=== PATIENT | female | born 2000 | race Two or more races ===

== ENCOUNTER 2018-03-17 11:25 | Emergency (ER) | payer SELFPAY ==
[2018-03-17 11:46] VITALS: BP 109/57
--- NOTE | 2018-03-17 12:10 | ER Document Report ---
ED Medical Screen (RME) - General Chief Complaint: Vaginal Discharge Stated Complaint: PELVIC PAIN Time Seen by Provider: 03/17/18 12:07 Notes: 17 years old female presents today not having any menstrual cycle for the last 2 months, but the last 2 days having bloody discharges lower abdominal pain and also painful urination at the end of micturition. No fever chills or other constitutional symptoms. TRAVEL OUTSIDE OF THE [place] IN LAST 30 DAYS: No - Related Data Allergies/Adverse Reactions: amoxicillin Allergy (Verified 03/17/18 12:09) Physical Exam - Vital signs Vitals: Temp Pulse Resp BP Pulse Ox 98.4 F 78 16 109/57 L 99 03/17/18 11:44 03/17/18 11:44 03/17/18 11:44 03/17/18 11:44 03/17/18 11:44 Course - Vital Signs Vital signs: Temp Pulse Resp BP Pulse Ox 98.4 F 78 16 109/57 L 99 03/17/18 11:44 03/17/18 11:44 03/17/18 11:44 03/17/18 11:44 03/17/18 11:44
[2018-03-17 12:33] LABS: APPEARANCE,URINE CLOUDY; BILIRUBIN,URINE NEGATIVE (NEGATIVE); COLOR,URINE YELLOW; GLUCOSE, URINE NEGATIVE (NEGATIVE); KETONES,URINE NEGATIVE (NEGATIVE); LEUKOCYTE ESTERASE,URINE LARGE (NEGATIVE); NITRITE,URINE NEGATIVE (NEGATIVE); PROTEIN,URINE 30 mg/dL (NEGATIVE); URINE SPECIFIC GRAVITY 1.023
[2018-03-17 12:34] LABS: ABSOLUTE EOSINOPHILS # (AUTO) 0.1 10^3/uL (0.0-0.6); ABSOLUTE MONOCYTES (AUTO) 0.5 10^3/uL (0.1-1.4); ABSOLUTE NEUT (AUTO) 5.1 10^3/uL (1.7-8.2); BASOPHILS % (AUTO) 0.6 % (0-2); EOSINOPHILS % (AUTO) 0.9 % (0-6); HEMATOCRIT 36.6 % (36.0-47.0); HEMOGLOBIN 12.5 g/dL (12.0-15.5); LYMPHOCYTES % (AUTO) 25.9 % (13-45); MEAN CORPUSCULAR HGB CONC 34.2 g/dL (32.0-36.0); MEAN CORPUSCULAR VOLUME 82 fl (80-97); MONOCYTES % (AUTO) 6.2 % (3-13); PLATELET COUNT 204 10^3/uL (150-450); RED BLOOD COUNT 4.46 10^6/uL (3.72-5.28); SEGMENTED NEUTROPHILS % (AUTO) 66.4 % (42-78); TOTAL CELLS COUNTED % (AUTO) 100 %; WHITE BLOOD COUNT 7.7 10^3/uL (4.0-10.5)
[2018-03-17] MEDS ORDERED: CEFTRIAXONE INJ 250 MG VIAL IM ONE (13:07)
--- NOTE | 2018-03-17 13:07 | ER Document Report ---
ED General - General Chief Complaint: Vaginal Discharge Stated Complaint: PELVIC PAIN Time Seen by Provider: 03/17/18 12:07 TRAVEL OUTSIDE OF THE [place] IN LAST 30 DAYS: No - HPI Notes: Patient is a 17-year-old female that presents to the emergency department for chief complaint of dysuria and vaginal discharge. Patient states that she has had dysuria for the last 5 days and pelvic pressure at the end of urination. She reports a thick white vaginal discharge for the last few days as well. She is sexually active and not on control. She states she has taken 5 tests at home that have all been negative, the last one was 1 week ago. Her last menstrual cycle was about 2 months ago. She does state that her partner has been unfaithful and she is concerned for STDs. She denies history of STD in the past. She denies any nausea, vomiting, fevers or chills or pain when she is not urinating. Past Medical History: Negative Past Surgical History: Negative Social History: Denies drugs and tobacco. Occasional alcohol. Family History: Reviewed and noncontributory for presenting illness Allergies: Reviewed, see documented allergy list. REVIEW OF SYSTEMS: CONSTITUTIONAL : No fever No chills No diaphoresis No recent illness EENT: No vision changes No congestion No sore throat CARDIOVASCULAR: No chest pain No palpitations RESPIRATORY: No shortness of breath No cough No difficulty breathing GASTROINTESTINAL: No abdominal pain No nausea No vomiting No diarrhea GENITOURINARY: dysuria Vaginal discharge No hematuria No difficulty urinating MUSCULOSKELETAL: No back pain No leg pain No arm pain SKIN: No rashes No lesions LYMPHATIC: No swollen, enlarged glands. NEUROLOGICAL: No lightheadedness No headache No weakness No paresthesias PSYCHIATRIC: No anxiety No depression PHYSICAL EXAMINATION: Vital signs reviewed, nursing noted reviewed. GENERAL: Well-appearing, well-nourished and in no acute distress. HEAD: Atraumatic, normocephalic. EYES: Eyes appear normal, extraocular movements intact, sclera anicteric, conjunctiva are normal. ENT: nares patent, oropharynx clear without exudates. Moist mucous membranes. NECK: Normal range of motion, supple without lymphadenopathy LUNGS: Breath sounds clear to auscultation bilaterally and equal. No wheezes rales or rhonchi. HEART: Regular rate and rhythm without murmurs ABDOMEN: Soft, nontender, normoactive bowel sounds. No rebound, guarding, or rigidity. No masses appreciated. : Thick white vaginal discharge, no vaginal bleeding. No cervical motion tenderness. No adnexal tenderness or fullness. Uterus soft and nontender. No external lesions. EXTREMITIES: Nontender, good range of motion, no pitting or edema. NEUROLOGICAL: No focal neurological deficits. Moves all extremities spontaneously Motor and sensory grossly intact on exam. PSYCH: Normal mood, normal affect. SKIN: Warm, Dry, normal turgor, no rashes or lesions noted on exposed skin - Related Data Allergies/Adverse Reactions: amoxicillin Allergy (Verified 03/17/18 12:09) Past Medical History - General Last Menstrual Period: December 2017 - Social History Smoking Status: Never Smoker Frequency of alcohol use: Occasional Drug Abuse: None Family History: Reviewed & Not Pertinent Patient has suicidal ideation: No Patient has homicidal ideation: No Renal/ Medical History: Denies: Hx Peritoneal Dialysis Review of Systems - Review of Systems Notes: Dictated Physical Exam - Vital signs Vitals: Temp Pulse Resp BP Pulse Ox 98.4 F 78 16 109/57 L 99 03/17/18 11:44 03/17/18 11:44 03/17/18 11:44 03/17/18 11:44 03/17/18 11:44 - Notes Notes: Dictated Course - Re-evaluation Re-evalutation: 03/17/18 13:07 Vitals reviewed. Patient would like to be prophylactically treated for gonorrhea and chlamydia. She was given azithromycin and Rocephin in the emergency room. Urinalysis does show urinary tract infection. Yeast and trichomonas are negative. Patient will be discharged home on Macrobid for her UTI. She was encouraged to follow with primary care for reevaluation if symptoms are persisting. 03/17/18 13:30 Laboratory 03/17/18 03/17/18 03/17/18 12:20 12:20 12:20 WBC 7.7 RBC 4.46 Hgb 12.5 Hct 36.6 MCV 82 MCH 28.0 MCHC 34.2 RDW 15.0 H Plt Count 204 Seg Neutrophils % 66.4 Lymphocytes % 25.9 Monocytes % 6.2 Eosinophils % 0.9 Basophils % 0.6 Absolute Neutrophils 5.1 Absolute Lymphocytes 2.0 Absolute Monocytes 0.5 Absolute Eosinophils 0.1 Absolute Basophils 0.0 Beta HCG, Quant < 2.39 Total Beta HCG NEGATIVE Urine Color YELLOW Urine Appearance CLOUDY Urine pH 5.0 Ur Specific [place] 1.023 Urine Protein 30 H Urine Glucose (UA) NEGATIVE Urine Ketones NEGATIVE Urine Blood NEGATIVE Urine Nitrite NEGATIVE Urine Bilirubin NEGATIVE Urine Urobilinogen 2.0 H Ur Leukocyte Esterase LARGE H Urine WBC (Auto) >182 Urine RBC (Auto) 38 Urine WBC Clumps FEW Squamous Epi Cells Auto 9 U Non-Squamous Epis Auto 2 Urine Mucus (Auto) OCC Urine Ascorbic Acid 40 H Trichomonas (Wet Prep) Vaginal WBC Vaginal RBC Vaginal Yeast 03/17/18 12:50 WBC RBC Hgb Hct MCV MCH MCHC RDW Plt Count Seg Neutrophils % Lymphocytes % Monocytes % Eosinophils % Basophils % Absolute Neutrophils Absolute Lymphocytes Absolute Monocytes Absolute Eosinophils Absolute Basophils Beta HCG, Quant Total Beta HCG Urine Color Urine Appearance Urine pH Ur Specific [place] Urine Protein Urine Glucose (UA) Urine Ketones Urine Blood Urine Nitrite Urine Bilirubin Urine Urobilinogen Ur Leukocyte Esterase Urine WBC (Auto) Urine RBC (Auto) Urine WBC Clumps Squamous Epi Cells Auto U Non-Squamous Epis Auto Urine Mucus (Auto) Urine Ascorbic Acid Trichomonas (Wet Prep) NO TRICHOMONAS SEEN Vaginal WBC 2+ WBCS SEEN Vaginal RBC NO RBCS SEEN Vaginal Yeast NO YEAST SEEN - Vital Signs Vital signs: Temp Pulse Resp BP Pulse Ox 98.4 F 78 16 109/57 L 99 03/17/18 11:44 03/17/18 11:44 03/17/18 11:44 03/17/18 11:44 03/17/18 11:44 - Laboratory Result Diagrams: 03/17/18 12:20 Laboratory results interpreted by me: 03/17/18 03/17/18 12:20 12:20 RDW 15.0 H Urine Protein 30 H Urine Urobilinogen 2.0 H Ur Leukocyte Esterase LARGE H Urine Ascorbic Acid 40 H Discharge - Discharge Clinical Impression: Vaginal discharge UTI (urinary tract infection) Qualifiers: Urinary tract infection type: site unspecified Hematuria presence: without hematuria Qualified Code(s): N39.0 - Urinary tract infection, site not specified Condition: Stable Disposition: HOME, SELF-CARE Instructions: Nitrofurantoin ([facility]), Urinary Tract Infection ([facility]) Additional Instructions: Please return to the emergency department if you have any worsening, or concern of your symptoms. Please return to the emergency department if you develop chest pain, difficulty breathing, severe abdominal pain, or ongoing vomiting. Please follow-up with your primary care physician in 2-3 days and any other recommended physicians. If prescribed, take all medications as directed. If you have any questions or concerns do not hesitate to return the emergency department for evaluation. [] Prescriptions: Nitrofurantoin Monohyd/M-Cryst [Macrobid 100 mg Capsule] 1 tab PO BID #10 capsule
[2018-03-17] MEDS ORDERED: AZITHROMYCIN 1 GM SUSP PACKET PO ONE (13:08)
[2018-03-17 13:16] LABS: RBCS (WET MOUNT) NO RBCS SEEN; T.VAGINALIS (WET MOUNT) NO TRICHOMONAS SEEN; WBCS (WET MOUNT) 2+ WBCS SEEN; YEAST (WET MOUNT) NO YEAST SEEN
[2018-03-17 14:36] LABS: CHLAM PCR NOT DETECTED (NOT DETECT); GON PCR NOT DETECTED (NOT DETECT)
== END 2018-03-17 13:35 | disposition home or self-care (01) ==
LOC: ER 11:25
DX: N89.8 Other specified noninflammatory disorders of vagina (principal); N39.0 Urinary tract infection, site not specified; Z20.2 Contact with and (suspected) exposure to infections with a predominantly sexual mode of transmission; Z88.0 Allergy status to penicillin
CPT/HCPCS: 99284; 96372; 36415; 87210; 84702; 85025; 81025; 81001; 87491; 87591; Q0144; J0696

== ENCOUNTER 2019-03-11 15:15 | Emergency (ER) | payer MEDICAID, OTHER ==
--- NOTE | 2019-03-11 15:30 | ER Document Report ---
ED Medical Screen (RME) - General Chief Complaint: Vag Bleeding, +preg <12wks Stated Complaint: BLEEDING WITH Time Seen by Provider: 03/11/19 15:23 Mode of Arrival: Ambulatory Information source: Patient Notes: This 18-year-old female G1, P0 last menstrual period was in January presents today with vaginal bleeding. Lower abdominal pain. Reports she has been evaluated and treated at [facility] emergency department and [facility] for same symptoms the past 2 days. Reports she received RhoGam shot yesterday. Patient reports she is bleeding more passing clots. I have greeted and performed a rapid initial assessment of this patient. A comprehensive ED assessment and evaluation of the patient, analysis of test results and completion of the medical decision making process will be conducted by additional ED providers. Dictation of this chart was performed using voice recognition software; therefore, there may be some unintended grammatical errors. TRAVEL OUTSIDE OF THE [place] IN LAST 30 DAYS: No - Related Data Allergies/Adverse Reactions: amoxicillin Allergy (Verified 03/17/18 12:09) Past Medical History Renal/ Medical History: Denies: Hx Peritoneal Dialysis Physical Exam - Vital signs Vitals: Temp Pulse Resp BP Pulse Ox 98.0 F 72 16 108/59 L 100 03/11/19 15:22 03/11/19 15:22 03/11/19 15:22 03/11/19 15:22 03/11/19 15:22 Course - Vital Signs Vital signs: Temp Pulse Resp BP Pulse Ox 98.0 F 72 16 108/59 L 100 03/11/19 15:22 03/11/19 15:22 03/11/19 15:22 03/11/19 15:22 03/11/19 15:22
[2019-03-11 16:09] LABS: ABSOLUTE EOSINOPHILS # (AUTO) 0.1 10^3/uL (0.0-0.6); ABSOLUTE LYMPHOCYTES (AUTO) 2.2 10^3/uL (0.5-4.7); ABSOLUTE MONOCYTES (AUTO) 0.5 10^3/uL (0.1-1.4); ABSOLUTE NEUT (AUTO) 4.1 10^3/uL (1.7-8.2); BASOPHILS % (AUTO) 0.7 % (0-2); EOSINOPHILS % (AUTO) 1.1 % (0-6); HEMOGLOBIN 13.3 g/dL (12.0-15.5); LYMPHOCYTES % (AUTO) 32.2 % (13-45); MEAN CORPUSCULAR HEMOGLOBIN 28.7 pg (27.0-33.4); MEAN CORPUSCULAR HGB CONC 34.1 g/dL (32.0-36.0); MEAN CORPUSCULAR VOLUME 84 fl (80-97); MONOCYTES % (AUTO) 7.6 % (3-13); PLATELET COUNT 228 10^3/uL (150-450); RED BLOOD COUNT 4.63 10^6/uL (3.72-5.28); RED CELL DISTRIBUTION WIDTH 13.9 % (11.5-14.0); SEGMENTED NEUTROPHILS % (AUTO) 58.4 % (42-78); TOTAL CELLS COUNTED % (AUTO) 100 %
--- NOTE | 2019-03-11 16:15 | ER Document Report ---
ED General - General Chief Complaint: Vag Bleeding, +preg <12wks Stated Complaint: BLEEDING WITH Time Seen by Provider: 03/11/19 15:23 Mode of Arrival: Ambulatory TRAVEL OUTSIDE OF THE [place] IN LAST 30 DAYS: No - HPI Notes: 18 year old female to the ED with complaint of vaginal bleeding/passing of clots larger than a quarter today. Patient was seen at the ED two days ago at [facility] and was seen at OB yesterday. She had US both times and an IUP was not identified. She was told "it could be an ectopic ". Patient reports she is approximately 5 weeks along in her first . Patient reports she received a shot of Rhogam yesterday and carries a card with her. She also had repeat beta quant testing for the past three days. She is unsure of the numbers. Denies any fevers, chills, NVD, chest pain, SOB, headache, passing out. - Related Data Allergies/Adverse Reactions: amoxicillin Allergy (Verified 03/17/18 12:09) Past Medical History - General Information source: Patient Last Menstrual Period: 01/24 - Social History Smoking Status: Never Smoker Frequency of alcohol use: None Drug Abuse: None Family History: Reviewed & Not Pertinent Patient has suicidal ideation: No Patient has homicidal ideation: No Renal/ Medical History: Denies: Hx Peritoneal Dialysis Review of Systems - Review of Systems Constitutional: denies: Chills, Fever EENT: No symptoms reported Cardiovascular: denies: Chest pain, Palpitations, Heart racing, Orthopnea, Dyspnea, Syncope, Dizziness, Lightheaded Respiratory: denies: Cough, Short of breath Gastrointestinal: Abdominal pain - pelvic cramping. denies: Diarrhea, Nausea, Vomiting Genitourinary: No symptoms reported Female Genitourinary: See HPI, , Vaginal bleeding Skin: No symptoms reported Neurological/Psychological: No symptoms reported -: Yes All other systems reviewed and negative Physical Exam - Vital signs Vitals: Temp Pulse Resp BP Pulse Ox 98.0 F 72 16 108/59 L 100 03/11/19 15:22 03/11/19 15:22 03/11/19 15:22 03/11/19 15:22 03/11/19 15:22 Interpretation: Normal - General General appearance: Appears well In distress: None - HEENT Head: Normocephalic, Atraumatic Eyes: Normal Pupils: PERRL - Respiratory Respiratory status: No respiratory distress Chest status: Nontender Breath sounds: Normal Chest palpation: Normal - Cardiovascular Rhythm: Regular Heart sounds: Normal auscultation Murmur: No - Abdominal Inspection: Normal Distension: No distension Bowel sounds: Normal Tenderness: Nontender Organomegaly: No organomegaly - Genitourinary External exam: Normal Speculum exam: Cervix closed Vaginal bleeding: Mild - mild amoutn of blood in the canal. cervix is closed Bimanuel exam: Normal, Uterus enlarged Notes: chaperoned by PCT - Back Back: Normal. No: CVA tenderness - Psychological Associated symptoms: Normal affect, Normal mood - Skin Skin Temperature: Warm Skin Moisture: Dry Skin Color: Normal Course - Re-evaluation Re-evalutation: was able to contact [facility] ER and get patient's beta quant levels -- she is rising -- was initially 494, now 577 here in the ER. Suspect this is a threatened miscarriage. Noted US today, but because no faustino pole and no HR yet, cannot fully exclude ectopic. I have given the patient strict ectopic precautions and urged to return if she is worsening -- worsening pelvic pain, soaking through more than 1 pad an hour for several hours, passing out, fevers. Urged to call OB clinic at [facility] on wednesday. Will place on pelvic rest. Patient and significant other agree with the plan. Obstetrics Ultrasound 03/11/19 15:27 IMPRESSION: POSSIBLE EARLY INTRAUTERINE . BHCG LEVEL APPROPRIATE FOR ENDOMETRIAL FINDINGS. CONSIDER F/U BHCG AND/OR ULTRASOUND FOR VERIFICATION AND TO EXCLUDE ECTOPIC . Trimester of : First trimester - 0 to 13 weeks. - Vital Signs Vital signs: Temp Pulse Resp BP Pulse Ox 98.6 F 81 16 100/63 100 03/11/19 18:46 03/11/19 18:46 03/11/19 18:46 03/11/19 18:46 03/11/19 18:46 - Laboratory Result Diagrams: 03/11/19 15:31 03/11/19 15:31 Laboratory results interpreted by me: 03/11/19 15:31 Creatinine 0.48 L Beta HCG, Quant 577.22 H Discharge - Discharge Clinical Impression: Vaginal bleeding affecting early Condition: Stable Disposition: HOME, SELF-CARE Instructions: Vaginal Bleeding ([facility]) Additional Instructions: FOLLOW UP WITH YOUR [facility] WITHOUT FAIL ON WEDNESDAY. YOUR HORMONE IS RISING BY A SMALL AMOUNT. YOUR ULTRASOUND TODAY SHOWS THAT YOU MAY HAVE A POSSIBLE GESTATIONAL SAC IN THE UTERUS, BUT DOES NOT CONFIRM . YOU STILL NEED TO FOLLOW ECTOPIC PRECAUTIONS. PLEASE RETURN IF WORSENING BLEEDING -- GREATER THAN 1 PAD PER HOUR FOR SEVERAL HOURS, PASSING OUT, WORSENING PAIN, OR ANY OTHER CONCERNING SYMPTOMS. PELVIC REST -- NO SEX, NO DOUCHING, NO TAMPONS. CONTINUE . YOU HAD RHOGAM YESTERDAY, SO IT IS NOT NEEDED TODAY. PUSH FLUIDS.
[2019-03-11 16:21] LABS: ALBUMIN 4.4 g/dL (3.5-5.0); ALKALINE PHOSPHATASE 52 U/L (38-126); ANION GAP 10 (5-19); ASPARTATE AMINO TRANSFERASE 28 U/L (14-36); BILIRUBIN,TOTAL 0.5 mg/dL (0.2-1.3); BLOOD UREA NITROGEN 8 mg/dL (7-20); CALCIUM 9.7 mg/dL (8.4-10.2); CARBON DIOXIDE 28 mmol/L (22-30); CHLORIDE 101 mmol/L (98-107); GLUCOSE 89 mg/dL (75-110); TOTAL PROTEIN 7.3 g/dL (6.3-8.2)
--- NOTE | 2019-03-11 17:04 | RADIOLOGY REPORT (SQ) ---
EXAM DESCRIPTION: U/S OB TRANSVAGINAL W/O DOP COMPLETED DATE/TIME: 03/11/2019 4:45 pm REASON FOR STUDY: PREG, BLEEDING, MISCARRIAG COMPARISON: None. TECHNIQUE: Transvaginal static and realtime grayscale images acquired of the pelvis. Additional aram cted spectral and color Doppler images recorded. All images stored on PACs. CLINICAL AGE: 6 weeks bHCG: Pending. LIMITATIONS: None. FINDINGS: UTERUS: No masses. No anomalies. GESTATIONAL SAC: 5 mm diameter. YOLK SAC: None present POLE: None present. RIGHT ADNEXA: Normal ovary with normal vascular flow. No adnexal free fluid. No adnexal masses. LEFT ADNEXA: Normal ovary with normal vascular flow. No adnexal free fluid. No adnexal masses. FREE FLUID: None. OTHER: No other significant finding. IMPRESSION: POSSIBLE EARLY INTRAUTERINE . BHCG LEVEL APPROPRIATE FOR ENDOMETRIAL FINDINGS. CONSIDER F/U BHCG AND/OR ULTRASOUND FOR VERIFICATION AND TO EXCLUDE ECTOPIC . Trimester of : First trimester - 0 to 13 weeks. TECHNICAL DOCUMENTATION: JOB ID: [id number] [id number] 2010 [employer]- All Rights Reserved Reading location - IP/workstation name: [email or web address]
[2019-03-11 18:48] VITALS: BP 100/63
== END 2019-03-11 18:50 | disposition home or self-care (01) ==
LOC: ER 15:15
DX: O20.9 Hemorrhage in early pregnancy, unspecified (principal); O26.891 Other specified pregnancy related conditions, first trimester; R10.2 Pelvic and perineal pain; Z3A.01 Less than 8 weeks gestation of pregnancy; Z88.0 Allergy status to penicillin
CPT/HCPCS: 36415; 76817; 80053; 84702; 85025; 86900; 86901; 99284